=== PATIENT | male | born 1995 | race Two or more races ===

== ENCOUNTER 2020-06-05 22:35 | Emergency (ER) | payer BC, OTHER ==
[~2020-06-05] VITALS: Ht 170.2 cm; Wt 61.2 kg
[2020-06-05 22:54] VITALS: BP 108/78
== END 2020-06-06 02:53 | disposition home or self-care (01) ==
LOC: ER 22:36
DX: S81.011A Laceration without foreign body, right knee, initial encounter (principal); W26.9XXA Contact with unspecified sharp object(s), initial encounter; Y93.89 Activity, other specified; Y92.89 Other specified places as the place of occurrence of the external cause; Y99.8 Other external cause status
CPT/HCPCS: 12002; 73562